=== PATIENT | male | born 1975 | race Caucasian/White ===

== ENCOUNTER 2022-02-05 19:29 | Emergency (ER) | payer BC, SELFPAY ==
[2022-02-05 19:57] VITALS: BP 155/78; PULSE 105; RESP 18; TEMP 36.7; O2SAT 99; BMI 38.4
--- NOTE | 2022-02-05 20:02 | ED.GENADULT ---
HPI - General Adult General Time Seen by Provider: 20:02 Date Seen: 02/05/22 Chief complaint: Unspecified Complaint, Adult Stated complaint: Elbow Gout Flare up Time Seen by Provider: 02/05/22 20:02 Source: patient and RN notes reviewed Mode of arrival: ambulatory Limitations: no limitations History of Present Illness HPI narrative: Patient is a 46-year-old male coming in with left elbow pain. He notes it has been getting increasingly red and swollen, painful. It hurts to move. He denies any trauma. He is noted to have a little scab in the center of his elbow. He states there was a little white thing that was coming out of his elbow. He picked at it. He picked at his elbow before the redness started. He states he was working in within [employer]. They did get colchicine for him, he did not get prednisone. He states the pain was so bad last night he could not sleep. He did drive himself here. He has not noted any fevers. He has not had any chills or night sweats. He has had a history of gout in his elbow before. Related Data Home Medications Medication Instructions Recorded Confirmed allopurinol 100 mg tablet 100 mg PO DAILY 02/05/22 02/05/22 colchicine 0.6 mg tablet 0.6 mg PO DAILY 02/05/22 02/05/22 naltrexone 50 mg tablet 50 mg PO DAILY 02/05/22 02/05/22 Allergies Allergy/AdvReac Type Severity Reaction Status Date / Time No Known Drug Allergies Allergy Verified 10/23/21 07:45 Review of Systems Status of ROS: Reports: 6 or more systems reviewed and unremarkable except as noted in History and below [facility] Medical History (Updated 02/05/22 @ 20:56 by Rosibel Darden MD) Anxiety Gout Social History (Updated 10/23/21 @ 07:49 by Misty Arriola CMA) Smoking Status: Never smoker How often do you have a drink containing alcohol: never How often do you have six or more drinks on one occasion: Never AUDIT-C Alcohol total score: 0 Non-prescribed substance use: denies use service: No Exam Const: Vital Signs, click to edit/add: Vital Signs - 24 hr 02/05/22 19:57 Temperature 98.0 F Pulse Rate [Right Pulse Oximeter] 105 H Respiratory Rate 18 Blood Pressure [Ri ght Upper Arm] 155/78 H Pulse Oximetry 99 Oxygen Delivery Me thod Room Air Documenting provider has reviewed patient's vital signs: yes (Note oral temperature is 98.5? F.) Common normals: no apparent distress, oriented x3, no limitations, healthy appearing and alert General appearance: cooperative, comfortable, well kempt and well developed Eye: Common normals: PERRL, EOMs intact bilaterally, conjunctivae normal and no scleral icterus Conjunctiva: conjunctiva(e) normal Pupil: PERRL Neck & C-Spine: Common normals: full ROM, no lymphadenopathy, supple, no meningeal signs, no JVD and thyroid normal Thyroid: thyroid normal Resp: Common normals: normal respiratory effort, no retractions, no use of accessory muscles and clear to auscultation bilaterally Auscultation: clear to auscultation bilaterally Cardio: Common normals: no JVD, regular rate, regular rhythm, S1 normal heart sound, S2 normal heart sound, no gallops, no clicks and no murmurs Rate: regular rate Rhythm: regular rhythm Heart sounds: S1 normal and S2 normal Extremity: Other: Posterior aspect of his elbow is erythematous. Does seem to be some fluid and tenderness over the olecranon. There is a scab in the center of all this erythema. The erythema is not intensified around the scab. He is globally tender when I palpate. He does not want to flex or extend the elbow due to pain. Distal sensation and neurologic status is intact of this extremity. Neuro: Common normals: oriented x3 Sensorium/orientation: alert Meningeal signs: no meningeal signs Psych: Appearance: well kempt Course Course Hospital Course: Reviewed with patient that I do think we should obtain some blood work. I would like to see where his white count is as well as a uric acid. Will obtain 1 blood culture and get a 2nd 1 if needed. He had a hat on when they checked his temperature. Will have them get an oral documented temperature on him. This certainly could be gout but need to rule out septic olecranon bursitis, cellulitis. Reevaluation(s) Reevaluation #1: Reviewed with patient that his white count is normal, oral temperature is normal. C-reactive protein is mildly elevated but that certainly can be with gout. Uric acid is mid range. He looks quite well, doubt that this is a septic olecranon bursitis. We can cover for cellulitis with some Keflex but to go ahead and treat for gout as well. He is really wanting prednisone and I reviewed with him that we will get that for him. I will give him a small for tablet count of 5 mg oxycodone from the [employer] dispenser. Sed rate is still pending but anticipate that that will be elevated as well. Time: 20:51 Vital Signs Vital signs: Initial Vital Signs Temperature 98.0 F 02/05/22 19:57 Temperature Source Temporal Artery Scan 02/05/22 19:57 Pulse Rate 105 H 02/05/22 19:57 Respiratory Rate 18 02/05/22 19:57 Blood Pressure 155/78 H 02/05/22 19:57 Blood Pressure Mean 103 02/05/22 19:57 Blood Pressure Position Sitting 02/05/22 19:57 Pulse Oximetry 99 02/05/22 19:57 Oxygen Delivery Method 02/05/22 19:57 Vital Signs Temperature 98.0 F 02/05/22 19:57 Pulse Rate 105 H 02/05/22 19:57 Respiratory Rate 18 02/05/22 19:57 Blood Pressure 155/78 H 02/05/22 19:57 Pulse Oximetry 99 02/05/22 19:57 Oxygen Delivery Method 02/05/22 19:57 Temperature 98.0 F 02/05/22 19:57 Pulse Rate 105 H 02/05/22 19:57 Respiratory Rate 18 02/05/22 19:57 Blood Pressure 155/78 H 02/05/22 19:57 Pulse Oximetry 99 02/05/22 19:57 Oxygen Delivery Method 02/05/22 19:57 Medical Decision Making Lab Data Lab results reviewed: Yes I reviewed the patient's lab results Labs: Lab Results 02/05/22 02/05/22 Range/Units 20:18 20:18 WBC 7.87 (4.50-11.00) K/uL RBC 5.01 (4.30-5.90) m/uL Hgb 16.6 (13.5-17.5) gm/dL Hct 48.9 (37.0-53.0) % MCV 98 (80-100) fL MCH 33 (26-34) pg MCHC 34 (32-36) gm/dL RDW Coeff of Timbo 12.5 (11.5-15.5) % Plt Count 217 (140-440) K/uL Neut % (Auto) 68.8 (42.0-72.0) % Lymph % (Auto) 22.1 (20-44) % Kendall % (Auto) 7.6 (0.0-11.0) % Eos % (Auto) 0.6 (0.0-7.0) % Baso % (Auto) 0.4 (0.0-3.0) % Neut # (Auto) 5.41 (1.7-7.0) K/uL Lymph # (Auto) 1.74 (0.90-2.90) K/uL Kendall # (Auto) 0.60 (0.00-0.90) K/UL Eos # (Auto) 0.05 (0.00-0.50) K/uL Baso # (Auto) 0.03 (0.00-0.30) K/uL Sodium 139 (135-149) mmol/L Potassium 3.7 (3.6-5.1) mmol/L Chloride 106 (96-114) mmol/L Carbon Dioxide 29 (20-32) mmol/L BUN 12 (5-24) mg/dL Creatinine 0.9 (0.5-1.5) mg/dL Estimated Creat Clear 103.65 Estimated GFR 107 ml/min Glucose 87 (60-115) mg/dL Uric Acid 6.1 (2.2-8.4) mg/dL Calcium 9.1 (8.4-10.6) mg/dL C-Reactive Protein 3.8 H (0.5-1.0) mg/dL Critical Care Time Critical Care Time Critical Care Time: No Discharge Plan Discharge Clinical Impression: Gout Patient Disposition: Home, Self-Care Condition: Stable Instructions: Low Purine Diet (ED), Gout (ED) Additional Instructions: Start prednisone and take as prescribed. Tylenol baseline for pain, 1000 mg 3 times a day. Can use some ibuprofen if needed for extra pain control but be careful as prednisone and ibuprofen together may cause stomach irritation, take either with food. Have written for small dose of oxycodone to use until the prednisone is working. Do not drive or operate machinery on the oxycodone. If you become constipated with the oxycodone, you senna or MiraLax. If you develop a fever, have increasing redness or swelling about the elbow, symptoms are worsening and not improving, do need to be re-evaluated. We will also cover you with Keflex which is an antibiotic given there is a little bit of a scab on this elbow. Do not feel that there is infection at this time but cannot 100% prove that there isn't. Prescriptions: No Action allopurinol 100 mg tablet 100 mg PO DAILY colchicine 0.6 mg tablet 0.6 mg PO DAILY naltrexone 50 mg tablet 50 mg PO DAILY Stand Alone Forms: [facility] Info Instructions
[2022-02-05 20:25] LABS: Basophils Absolute Auto 0.03 K/uL (0.00-0.30); Basophils Percent Auto 0.4 % (0.0-3.0); Eosinophils Absolute Auto 0.05 K/uL (0.00-0.50); Eosinophils Percent Auto 0.6 % (0.0-7.0); Hematocrit 48.9 % (37.0-53.0); Hemoglobin* 16.6 gm/dL (13.5-17.5); Immature Granulocytes Abs Auto 0.04 K/uL (0.00-0.30); Immature Granulocytes Pct Auto 0.5 %; Lymphocytes Absolute Auto 1.74 K/uL (0.90-2.90); Lymphocytes Percent Auto 22.1 % (20-44); Mean Corpuscular HGB Conc 34 gm/dL (32-36); Mean Corpuscular Hemoglobin 33 pg (26-34); Mean Corpuscular Volume 98 fL (80-100); Monocytes Percent Auto 7.6 % (0.0-11.0); Neutrophils Absolute Auto 5.41 K/uL (1.7-7.0); Neutrophils Percent Auto 68.8 % (42.0-72.0); Platelet Count* 217 K/uL (140-440); RDW Coefficient of Variation % 12.5 % (11.5-15.5); Red Blood Count 5.01 m/uL (4.30-5.90); White Blood Count* 7.87 K/uL (4.50-11.00)
[2022-02-05 20:27] LABS: Slide Review Reflex No
[2022-02-05 20:39] LABS: Chloride* 106 mmol/L (96-114); Potassium* 3.7 mmol/L (3.6-5.1); Sodium* 139 mmol/L (135-149)
[2022-02-05 20:41] LABS: Creatinine* 0.9 mg/dL (0.5-1.5); Est. Creatinine Clearance* 103.65; Estimated Glomerular Filt Rate 107 ml/min
[2022-02-05 20:42] LABS: Blood Urea Nitrogen* 12 mg/dL (5-24); Carbon Dioxide* 29 mmol/L (20-32); Glucose* 87 mg/dL (60-115)
[2022-02-05 20:43] LABS: Calcium* 9.1 mg/dL (8.4-10.6); Uric Acid* 6.1 mg/dL (2.2-8.4)
[2022-02-05 20:45] LABS: C Reactive Protein* 3.8 mg/dL (0.5-1.0)
[2022-02-05 21:16] LABS: Erythrocyte SedimentationRate* 7 mm/hr (2-15)
== END 2022-02-05 21:11 | disposition home or self-care (01) ==
PROVIDERS: Emergency Provider Family Medicine
DX: M10.9 Gout, unspecified (principal)
CPT/HCPCS: 36415; 80048; 84550; 85025; 85651; 86140; 87040; 99283; 99284

== ENCOUNTER 2022-08-29 09:01 | Emergency (ER) | payer BC, OTHER, SELFPAY ==
[2022-08-29 09:22] VITALS: BP 136/85; PULSE 99; RESP 18; TEMP 36.7; O2SAT 100; BMI 39.1
[2022-08-29] MEDS: OXYCODONE 5 MG TABLET PO (09:57)
[2022-08-29] MEDS: LORazepam 1 MG TABLET PO (09:58)
--- OUTSIDE RECORDS SUMMARY | 2022-08-29 10:01 | XMS_ITS | Continuity of Care Document ---
Author Name Unknown Address [address] [place] [address] Phone [facility] Address [address] [place] [address] Phone Care Team Providers Care Trouble Operator Name Role Phone BETSY Flores Emergency Provider Unavaila ble PCP, None Primary Care Provider Unavailabl e Care Teams Patient Care Team Team Status: Active Member Role Status Dates Sherrie Flores NP Emergency Provider Active Start: October 16, 2021 None PCP Primary Care Provider Active Start: October 16, 2021 SONIA CLEMONS next of kin Active Chief Complaint and Reason for Visit Chief Complaint PAIN IN LEFT KNEE Allergies, Adverse Reactions, Alerts No known allergies Social History Smoking Status Status Start Date End Date Date of Observa tion Never smoked tobacco (finding) October 16, 2021 6:00pm Observation Status Observation Response Date of Response Tobacco Use Status *Q Never Tobacco User Septemb er 2021 6:00pm Tobacco Use Within Last Twelve Months No October 16, 2021 6:00pm Smoking Cessation Informatio n Provided To Patient No October 16, 2021 6:00pm Second Hand Smoke Exposure No Octe [facility] 2021 6:00pm Tobacco Use/Smoking Within Last 30 Days No October 16, 2021 6:00pm Caffeine Use Coffee October 16 6:00pm Soda October 16 6:00pm Alcohol Use History Yes October 6:00pm Alcohol Use in Last Twelve Months Yes October 16, 2021 6:00pm Alcohol Use Frequency Socially October 16, 2021 6:00pm Weekly October 16 6:00pm Recreational Drug Use History No Se ptember 2021 6:00pm Additional Data Assigned Sex Male Problems Active Problems Medical Problem Onset Date Status Left knee pain Active Procedures Procedure Date Performed Status Knee 3V Lt October 16, 2021 5:18pm activ e Vital Signs Vital Reading Result Reference Range Collection Date/Time Body Temperature 36.4 Katelin 36.1-38.1 October 162021 6:00pm Heart Rate 76 /min 60-100 October 16, 2021 6:00pm Respiratory rate 18 /min 12-20 October 162021 6:00pm Oxygen saturation by Pulse oximetry 99 % 95-100 October 16, 2021 6:00pm BP Systolic 156 mm[Hg] 90-140 October 16, 2021 6:00pm BP Diastolic 66 mm[Hg] 60-90 October 16, 2021 6:00pm Advance Directives Advance Directive Response Recorded Date/ Time Patient has Advance Directive *Q Not Applicable October 16, 2021 6:00pm Insurance Providers Payer Policy Id Coverage Id Subscriber's Name Subscriber Id Effective Date Expiration Date [employer] Individual Family [id number] SONIA CLEMONS [id number] Encounters Encounter Location(s) Arrival/Admit Date Discharge/Depart Date Provider(s) Departed Emergency [facility]Emergency Dept - [facility] October 16, 2021 4:14pm October 16, 2021 6:35pm null Mental Status Observation Response Date Recorded Affect/Behavior Calm October 16 5:05pm Cooperative October 16 5:05pm Plan of Treatment Future Tests Future scheduled test information is unavailable Pending Tests Test Name Date ordered Knee 3V Lt October 16, 2021 5:19pm Future Visits Future appointment information is unavailable Referrals to Other Providers Reason for Referral Referral Start Date Provider Jose sotomayor Contact Information Provider Address None PCP Future Procedures Future procedure information is unavailable Future Medications Future medication information is unavailable Patient Instructions Acute Knee Pain, Adult, Easy -to-Read Hospital Discharge Instructions Additional Instructions Rest, ice, Eduar wrap, elevate about level of heart as often as possible. Take hydrocodone/apap pain meds that were given to you as follows: one pill by mouth every 6 hrs as needed for pain. Avoid painful motions. Follow up with you Primary Care Provider as needed. Mode of Departure, General Discharge: Private Vehicle Accompanied By: Unaccompanied Patient Education Completed: Yes Personal Belongings with Patient: Yes Prescriptions Given to Patient: No Medications Given to Patient: Yes Progress Note Author Sherrie Flores [facility] October 16, 2021 7:37pm Note Date/Time October 16, 2021 6:23pm Patient Name: SONIA CLEMONS Unit#: [id number] Date of : 1975 Patient Type: REG ER Admit/Service Date:10/16/21 Attending Provider:Sherrie Flores Rm/Bed: Consulting Provider: Discharge Date: ED HPI GENERAL MEDICAL PROBLEM - General Chief Complaint: General Stated Complaint: PAIN IN LEFT KNEE Time Seen by Provider: 10/16/21 17:10 Source of Information: Reports: Patient History Limitations: Reports: No Limitations - History of Present Illness INITIAL COMMENTS - FREE TEXT/NARRATIVE: Pain and swelling in left knee x three days, denies injury. States went to bed wnl and awakened in pain and left knee swollen three days ago. States is worsening. Took ibuprofen for it, last dose more than 8 hrs ago. Is limping. Somewhat swollen, no warmth or redness. - Related Data Allergies Allergy/AdvReac Type Severity Reaction Status Date / Time No Known Allergies Allergy Verified 10/16/21 17:17 ED ROS GENERAL - Review of Systems Review Of Systems: Comprehensive ROS is negative, except as noted in HPI. ED EXAM, GENERAL - Physical Exam Exam: See Below Exam Limited By: No Limitations General Appearance: Alert, No Apparent Distress Eye Exam: Bilateral Eye: EOMI Ears: Hearing Grossly Normal Throat/Mouth: Normal Voice, No Airway Compromise Head: Atraumatic, Normocephalic Neck: Normal Inspection, Supple, Non-Tender, Full Range of Motion Respiratory/Chest: No Respiratory Distress, Lungs Clear, Normal Breath Sounds, Chest Non-Tender Cardiovascular: Normal Peripheral Pulses, Regular Rate, Rhythm GI/Abdominal: Soft, Non-Tender Back Exam: Normal Inspection, Full Range of Motion Extremities: Normal Capillary Refill, Joint Swelling (left knee) Neurological: Alert, Oriented, Normal Cognition, No Motor/Sensory Deficits Psychiatric: Normal Affect, Normal Mood Skin Exam: Warm, Dry, Intact, Normal Color, No Rash Lymphatic: No Adenopathy Course - Orders/Labs/Meds Orders: Active Orders 24 hr Category Date Time Status Knee 3V Lt [CR] Stat Exams 10/16/21 17:18 Taken Meds: Medications Discontinued Medications Generic Name Dose Route Start Last Admin Trade Name Serena PRN Reason Stop Dose Admin Ketorolac Tromethamine 30 mg 10/16/21 17:17 10/16/21 17:22 Ketorolac 30 Mg/Ml Sdv IM 10/16/21 17:18 30 mg ONETIME ONE Administration Ketorolac Tromethamine Confirm 10/16/21 17:31 Ketorolac 30 Mg/Ml Sdv Administered 10/16/21 17:32 Dose 30 mg .ROUTE .STK-MED ONE - Radiology Interpretation Free Text/Narrative:: Left knee xray shows no acute findings. Eduar wrap and ice pack given. Ketorolac injection with limited effectiveness. Pt now states that he thinks that he hurt hit while walking up some stairs, stating remembering it buckled a couple of times. Does not have a certified driver examiner with him. Gave ER to go pack of Hydrocodone/Acet 5/325, 1 po q 6hrs prn, #10. Departure - Departure Time of Disposition: 18:35 Disposition: Home, Self-Care 01 Condition: Good Clinical Impression: Left knee pain - Discharge Information Instructions: Acute Knee Pain, Adult, [id number] Referrals: PCP,None [Primary Care Provider] - Forms: ED Department Discharge Additional Instructions: Rest, ice, Eduar wrap, elevate about level of heart as often as possible. Take hydrocodone/apap pain meds that were given to you as follows: one pill by mouthevery 6 hrs as needed for pain. Avoid painful motions. Follow up with you Primary Care Provider as needed. - Problem List & Annotations (1) Left knee pain SNOMED Code(s): 2926967372 Code(s): M25.562 - PAIN IN LEFT KNEE Status: Acute Current Visit: Yes Qualifiers: Chronicity: acute Qualified Code(s): M25.562 - Pain in left knee - Problem List Review Problem List Initiated/Reviewed/Updated: Yes - My Orders Last 24 Hours: My Active Orders 10/16/21 17:18 Knee 3V Lt [CR] Stat - Assessment/Plan Last 24 Hours: My Active Orders 10/16/21 17:18 Knee 3V Lt [CR] Stat Electronically Signed: Sherrie Flores NP 10/16/21 [id number]
--- NOTE | 2022-08-29 10:11 | ED.GENADULT ---
HPI - General Adult General Date Seen: 08/29/22 Chief complaint: Back Injury/Pain Stated complaint: threw back out Time Seen by Provider: 08/29/22 09:26 Source: patient Mode of arrival: ambulatory Limitations: no limitations History of Present Illness HPI narrative: Patient is a 47-year-old male with long history of problems with his low back. He has had a couple of injections in the past which he says helped for about a year. He has disc bulges known at L 3, 4 and 5 I believe based on his last imaging. Does not sound like he has ever had radicular symptoms but he does respond well to injections historically. He was seen here in June, it sounds as if a conversation then was that he was going to follow up with Spine but he did not. He I think misunderstood the plan at that time. This morning he was getting out of bed and tweaked his back in the usual manner, complains of pain and spasm in the low back without radiation. He does not have any numbness or weakness, no bowel or bladder changes, no fevers, night sweats or other red flag symptoms. He says he seems to do better when he comes in right away. He improved rapidly last time with nonsteroidals and muscle relaxers after receiving an injection of Dilaudid and Valium in the ER, but says that the injections were very painful and he does not want to do that again. Related Data Home Medications Medication Instructions Recorded Confirmed colchicine 0.6 mg tablet 0.6 mg PO DAILY 02/05/22 02/05/22 naltrexone 50 mg tablet 50 mg PO DAILY 02/05/22 02/05/22 desvenlafaxine succinate 100 mg 100 mg PO DAILY 07/04/22 07/04/22 tablet,extended release 24 hr desvenlafaxine succinate 50 mg 50 mg PO DAILY 07/04/22 07/04/22 tablet,extended release 24 hr lorazepam 0.5 mg tablet 0.5 mg PO PRN 08/29/22 Previous Rx's Medication Instructions Recorded cyclobenzaprine 10 mg tablet 10 mg PO Q8H #15 tabs 08/29/22 ketorolac 10 mg tablet 10 mg PO Q8H #15 tabs 08/29/22 methylprednisolone 4 mg tablets in See Rx Instructions PO .COMPLEX 08/29/22 a dose pack (Medrol (Karan)) #21 ea Allergies Allergy/AdvReac Type Severity Reaction Status Date / Time No Known Drug Allergies Allergy Verified 08/29/22 09:27 Review of Systems Status of ROS: Reports: 10 or more systems reviewed and unremarkable except as noted in History and below [facility] Medical History Gout ?M10.9 - Gout, unspecified (ICD-10) Anxiety ?F41.9 - Anxiety disorder, unspecified (ICD-10) Social History Smoking Status: Never smoker How often do you have a drink containing alcohol: never How often do you have six or more drinks on one occasion: Never AUDIT-C Alcohol total score: 0 Non-prescribed substance use: denies use service: No Exam Narrative: Exam Narrative: Vital signs as noted above. In general, an alert, well-appearing patient. Head: Normocephalic, atraumatic. Eyes: Pupils are equal reactive. Extraocular movements are full. Conjunctivae are normal. ENT: Mucous membranes are moist. Throat is normal. Neck: Supple without lymphadenopathy. Heart: Regular rate and rhythm. No murmur or rub. Lungs: Clear bilaterally. No increased work of breathing, crackles or wheezes. Abdomen: Soft and nontender. No organomegaly. Back: Lower lumbar tenderness. Extremities: Well perfused. No edema. No calf tenderness. Pulses intact. Neurologic: Patient is alert and oriented to person and place. Speech is fluent. Face is symmetric. Strength is 5 of 5 in bilateral lower extremities, sensation is intact to light touch. Affect: Normal. Skin: Warm and dry. Well perfused. Const: Vital Signs, click to edit/add: Vital Signs - 24 hr 08/29/22 09:22 Temperature 98.1 F Pulse Rate [Right Pulse Oximeter] 99 Respiratory Rate 18 Blood Pressure [Ri ght Upper Arm] 136/85 Pulse Oximetry 100 Oxygen Delivery Me thod Room Air Course Course Hospital Course: We talked at length about management of his back symptoms, he has been told that he should defer surgery for as long as possible and I would agree with that. It does however sound that he responds well to injections, and gets good relief 4 year and as such I think it would be reasonable for him to proceed with another injection if that seems feasible. I have recommended that he follow up in Spine Clinic. For today, we will give a dose of oral oxycodone and Ativan for acute management here in the ER, and then I will prescribe Toradol, Flexeril and a Medrol Dosepak for home use. Return at any time for acute worsening, severe uncontrolled pain, weakness, bowel or bladder changes etcetera. Vital Signs Vital signs: Initial Vital Signs Temperature 98.1 F 08/29/22 09:22 Temperature Source Temporal Artery Scan 08/29/22 09:22 Pulse Rate 99 08/29/22 09:22 Respiratory Rate 18 08/29/22 09:22 Blood Pressure 136/85 08/29/22 09:22 Blood Pressure Mean 102 08/29/22 09:22 Blood Pressure Position Sitting 08/29/22 09:22 Pulse Oximetry 100 08/29/22 09:22 Oxygen Delivery Method Room Air 08/29/22 09:22 Vital Signs Temperature 98.1 F 08/29/22 09:22 Pulse Rate 99 08/29/22 09:22 Respiratory Rate 18 08/29/22 09:22 Blood Pressure 136/85 08/29/22 09:22 Pulse Oximetry 100 08/29/22 09:22 Oxygen Delivery Method Room Air 08/29/22 09:22 Temperature 98.1 F 08/29/22 09:22 Pulse Rate 99 08/29/22 09:22 Respiratory Rate 18 08/29/22 09:22 Blood Pressure 136/85 08/29/22 09:22 Pulse Oximetry 100 08/29/22 09:22 Oxygen Delivery Method Room Air 08/29/22 09:22 Discharge Plan Discharge Clinical Impression: Strain of lumbar region Patient Disposition: Home, Self-Care Condition: Stable Instructions: Back Pain (ED) Additional Instructions: Medications as prescribed. Recommend follow-up in the spine clinic in the next couple of weeks, consideration of another injection, may need additional imaging. For severe uncontrolled pain, new weakness, bowel or bladder changes, fever or other significant changes, return to the emergency department. Prescriptions: New methylprednisolone [Medrol (Karan)] 4 mg tablets,dose pack See Rx Instructions .ROUTE .COMPLEX Qty: 21 0RF Rx Instructions: orally per package directions ketorolac 10 mg tablet 10 mg PO Q8H Qty: 15 0RF cyclobenzaprine 10 mg tablet 10 mg PO Q8H Qty: 15 0RF No Action desvenlafaxine succinate 50 mg tablet extended release 24 hr 50 mg PO DAILY desvenlafaxine succinate 100 mg tablet extended release 24 hr 100 mg PO DAILY lorazepam 0.5 mg tablet 0.5 mg PO PRN colchicine 0.6 mg tablet 0.6 mg PO DAILY naltrexone 50 mg tablet 50 mg PO DAILY Follow Up/Referrals: Provider,Not a Local [Primary Care Provider] - Stand Alone Forms: [facility] Info Instructions
== END 2022-08-29 10:17 | disposition home or self-care (01) ==
LOC: ED 10:00
PROVIDERS: Emergency Provider Emergency Medicine
DX: S39.012A Strain of muscle, fascia and tendon of lower back, initial encounter (principal)
CPT/HCPCS: 99283; 99284; A9270

== ENCOUNTER 2022-09-07 07:39 | Outpatient (CLI) | payer BC, OTHER, SELFPAY | END 2022-09-07 07:40 | disposition home or self-care (01) | PROVIDERS: Visit Provider Family Medicine | DX: M54.16 Radiculopathy, lumbar region (principal); M51.36 Other intervertebral disc degeneration, lumbar region | CPT/HCPCS: 62323; J0702; Q9966 ==

== ENCOUNTER 2023-01-25 06:59 | Outpatient (CLI) | payer BC, OTHER, SELFPAY | END 2023-01-25 07:00 | disposition home or self-care (01) | PROVIDERS: Visit Provider Family Medicine | DX: M51.36 Other intervertebral disc degeneration, lumbar region (principal); M54.16 Radiculopathy, lumbar region | CPT/HCPCS: 62323; J0702; Q9966 ==

== ENCOUNTER 2023-07-05 06:52 | Outpatient (CLI) | payer OTHER, SELFPAY ==
--- OUTSIDE RECORDS SUMMARY | 2023-07-05 06:55 | XMS_ITS ---
Author Name Unknown Organization [facility] Address [address] [place] [id number] Care Team Providers Care Cloth Folder Hand Name Role Phone Elsewhere, Pcp Primary Care Provider Unavailabl e Bariatrics Program Status:Enrolled (Active) Start date:08/30/2022 Enrollment date:11/10/2022 Current support & services provided:Pre-Op Related social determinants of health:Food Insecurity, Transportation Needs Continued Care and Services Coordination
--- OUTSIDE RECORDS SUMMARY | 2023-07-05 06:55 | XMS_ITS | Referral Summary ---
Author Name Unknown Organization [facility] Address [address] [place] [address] Care Team Providers Care Molding Press Operator Name Role Phone Elsewhere, Pcp Primary Care Provider Unavailabl e Source Comments Patient records contain information from all sites at [facility]. For routine questions regarding patient records, call [phone] during business hours, M-F 8:00 AM - 5:00 PM Central Time. Record requests for emergency care only can be directed to [phone] at any time.[facility] Allergies Active Allergy Reactions Criticality Noted Date Comments Chlorpheniramine-Phenylpropan Other (see comments) Medium 02/23/2016 Medications Medication Sig Dispensed Refills Start Date End Date Status allopurinoL (ZYLOPRIM) 100 mg tablet take 100mg by mouth once daily for 2 weeks; then increase to 200mg for 2 weeks; then increase to 300mg 07/08/2021 Active LORazepam (ATIVAN) 0.5 mg tablet 12/31/2021 Active desvenlafaxine (PRISTIQ) 100 mg 24 hr tablet Take 100 mg by mouth daily. Active desvenlafaxine (PRISTIQ) 100 mg 24 hr tablet Take 100 mg by mouth daily. Active desvenlafaxine (PRISTIQ) 50 mg 24 hr tablet Take 50 mg by mouth daily. Active allopurinoL (ZYLOPRIM) 100 mg tablet Take 1 tablet (100 mg total) by mouth daily. 90 tablet 3 01/01/2022 Active naltrexone (DEPADE) 50 mg tablet Take 1 tablet (50 mg total) by mouth daily. 30 tablet 02/04/2022 Active Active Problems Problem Noted Date Diagnosed Date Anxiety 12/31/2021 Gout 12/31/2021 Alcohol Moderate Or Severe U se Disorder (Dependence) Uncomplicated 12/31/2021 Immunizations Name Administration Dates Next Due Influenza (IM) Preservative Free 12/31/2021(Defe rred: Patient decision) MMR 06/23/1994 SARS-COV-2 (COVID-19) - PFIZ ER (Discontinued)(12 years or older) 12/31/2021(Deferred: Patient decision) Td (Adult), adsorbed 02/14/2003,04/14/2000,06/11 Td, (Adult) Unspecified 02/14/2003 Tdap 09/18/2015 Tetanus Toxoid, Adsorbed (discontinued) 02/14/2003 Social History Tobacco Use Types Packs/Day Years Used Date Smoking Tobacco: Never Smokeless Tobacco: Never Tobacco Cessation:Counseling Given: Not Answered Alcohol Use Standard Drinks/Week Comments Yes 40 (1 standard drink = 0.6 oz pure alcohol) 40 strong drinks per week Vodka. Humiliation, Afraid, Rape, and Kick questionnair e Answer Date Recorded Within the last year, have y ou been afraid of your partner or ex-partner? No 12/31/2021 Within the last year, have y ou been humiliated or emotionally abused in other ways by your partner or ex-partner? No Within the last year, have y ou been kicked, hit, slapped, or otherwise physically hurt by your partner or ex-partner? No 12/31/2021 Within the last year, have y ou been raped or forced to have any kind of sexual activity by your partner or ex-partner? No 12/31/2021 Social Connection and Isolation Panel [NHANES] A nswer Date Recorded In a typical week, how many times do you talk on the phone with family, friends, or neighbors? Once a week 12/31/2021 Frequency of Social Gatherings with Friends and Family Not on file 12/31/2021 How often do you attend spiritism or latter-day serv ices? Never 12/31/2021 Do you belong to any clubs o r organizations such as spiritism groups, unions, fraternal or athletic groups, or school groups? No 12/31/2021 How often do you attend meet ings of the clubs or organizations you belong to? Patient declined 12/31/2021 Are you , , di vorced, , never , or living with a partner? Never 12/31/2021 AUDIT-C Answer Date Recorded Q1: How often do you have a drink containing alcohol? 4 or more times a week 12/31/2021 Q2: How many drinks containi ng alcohol do you have on a typical day when you are drinking? 3 or 4 Q3: How often do you have si x or more drinks on one occasion? Weekly 12/31/2021 Overall Financial Resource Strain (CARDIA) Answe r Date Recorded How hard is it for you to pa y for the very basics like food, housing, medical care, and heating? Not hard at all 12/31/2021 PHQ-2 Answer Date Recorded PHQ-2 Score 0 12/31/2021 [facility] - Occupational Stress Questionnaire Answer Date Recorded Do you feel stress - tense, restless, nervous, or anxious, or unable to sleep at night because your mind is troubled all the time - these days? To some extent 12/31/2021 Exercise Vital Sign Answer Date Recorde d On average, how many days pe r week do you engage in moderate to strenuous exercise (like a brisk walk)? 5 days 12/31/2021 On average, how many minutes do you engage in exercise at this level? 10 min 12/31/2021 Hunger Vital Sign Answer Date Recorded Within the past 12 months, y ou worried that your food would run out before you got the money to buy more. Never true 01/01/20 22 Within the past 12 months, t he food you bought just didn't last and you didn't have money to get more. Often true 12/31/2021 PRAPARE - Transportation Answer Date Re corded In the past 12 months, has l ack of transportation kept you from medical appointments or from getting medications? No 12/15 In the past 12 months, has l ack of transportation kept you from meetings, work, or from getting things needed for daily living? No 12/31/2021 Housing Stability Vital Sign Answer Dale e Recorded In the last 12 months, was t here a time when you were not able to pay the mortgage or rent on time? No 12/31/2021 In the last 12 months, how many places have you lived? 1 12/31/2021 In the last 12 months, was t here a time when you did not have a steady place to sleep or slept in a detention (including now)? No 12/31/2021 Nutrition Answer Date Recorded Nutrition: EVOO Fat Source No 12/31 On average, how many serving s of fruits and vegetables do you eat per day (serving size is equal to 1 cup or approximately the size of a tennis ball)? 2-3 12/31/2021 Dental Answer Date Recorded Dental: Regular Dentist Yes 01/01/20 Employment Answer Date Recorded Employment status Employed and actively working without restrictions 12/31/2021 Education Answer Date Recorded What is the highest level of school you have completed or the highest degree you have received? 12th grade 12/31/2021 Sex and Gender Information Value Date Recorded Sex Assigned at Not on file Gender Identity Not on file Sexual Orientation Not on file Last Filed Vital Signs Vital Sign Reading Time Taken Comments Blood Pressure 146/92 12/31/2021 8:36 AM MANAGER LOCAL Pulse 102 12/31/2021 8:27 AM MANAGER LOCAL Temperature 36.8 ??C (98.3 ??F) 12/31/2021 8 :27 AM MANAGER LOCAL Respiratory Rate 16 12/31/2021 8:36 AM MANAGER LOCAL Oxygen Saturation - - Inhaled Oxygen Concentration - - Weight 119 kg (263 lb 3.7 oz) 12/31/2021 8:27 AM MANAGER LOCAL heavy sweat shirt and shoes on Height 176.1 cm (5' 9.33) 12/31/2021 8 :27 AM MANAGER LOCAL Shoes on Body Mass Index 38.5 12/31/2021 8:27 AM MANAGER LOCAL Plan of Treatment Not on file Procedures Procedure Name Priority Date/Time Associated Diagnosis Comments EXTI BASIC METABOLIC PANEL, S/P Routine 07/06/2021 4:20 PM CDT from Last 3 Months or Most Recently Relevant to Health Maintenance Care Teams Molding Press Operator Relationship Specialty Start Date End Date Elsewhere, Pcp PCP - General Internal Medicine 12/31/21
--- OUTSIDE RECORDS SUMMARY | 2023-07-05 06:55 | XMS_ITS | Clinical Summary ---
Author Name Unknown Organization [facility] Address [address] [place] [id number] Care Team Providers Care Furniture Sprayer Name Role Phone Elsewhere, Pcp Primary Care Provider Unavailabl e Source Comments Patient records contain information from all sites at [facility]. For routine questions regarding patient records, call [phone] during business hours, M-F 8:00 AM - 5:00 PM Central Time. Record requests for emergency care only can be directed to [phone] at any time.[facility] Allergies Active Allergy Reactions Criticality Noted [...] file 12/31/2021 How often do you attend christianity or sabianism serv ices? Never 12/31/2021 Do you belong to any clubs o r organizations such as christianity groups, unions, fraternal or athletic groups, or [...] Answer Date Recorded PHQ-2 Score 0 12/31/2021 [facility] - Occupational Stress [...] place to sleep or slept in a chcf (including now)? No 12/31/2021 Nutrition Answer Date [...] Comments Blood Pressure 146/92 12/31/2021 8:36 AM PRIZE JACKER Pulse 102 12/31/2021 8:27 AM PRIZE JACKER Temperature 36.8 ??C (98.3 ??F) 12/31/2021 8 :27 AM PRIZE JACKER Respiratory Rate 16 12/31/2021 8:36 AM PRIZE JACKER Oxygen Saturation - - Inhaled Oxygen Concentration - - Weight 119 kg (263 lb 3.7 oz) 12/31/2021 8:27 AM PRIZE JACKER heavy sweat shirt and shoes on Height 176.1 cm (5' 9.33) 12/31/2021 8 :27 AM PRIZE JACKER Shoes on Body Mass Index 38.5 12/31/2021 8:27 AM PRIZE JACKER Plan of Treatment Health Maintenance Due Date Last Done Comments CT Colonography 1976 Cologuard 1976 Colonoscopy 1976 Colorectal Cancer Screening 1976 FIT 1976 HIV Screening 1976 Hepatitis C Screening 1976 Lipid (Cholesterol) Screening 1976 Pneumococcal vaccine (0-64 y ears) (1 of 2 - PCV) 1982 Hepatitis B Vaccines (1 of 3 - 19+ 3-dose series) 07/31/1995 COVID-19 Vaccine ( - 2022-2 4 season) 2022 Influenza Vaccine (#1) 2022 Depression Screening (Annual PHQ-2) 02/14/2023 Fasting Glucose for Diabetes Screening 07/06/2024 07/06/2021 DTaP,Tdap,and Td Vaccines (3 - Td or Tdap) 09/17/2025 09/18/2015, 02/14/2003, 02/14/2003, Additional history exists Procedures Procedure Name Priority Date/Time Associated Diagnosis Comments EXTI BASIC METABOLIC PANEL, S/P Routine 07/06/2021 4:20 PM CDT from Last 3 Months or Most Recently Relevant to Health Maintenance Care Teams Furniture Sprayer Relationship Specialty Start Date End Date Elsewhere, Pcp PCP - General Internal Medicine 12/31/21
--- OUTSIDE RECORDS SUMMARY | 2023-07-05 06:55 | XMS_ITS | Clinical Summary ---
Author Name Unknown Organization [facility] Address [place], [place] [address] Care Team Providers Care Welder Shielded Metal Arc Name Role Phone Raymundo Zuluaga DO Primary Care Provider [phone] Allergies Active Allergy Reactions Criticality Noted Date Comments Chlorpheniramine-Phenylpropan Runny Nose Medium 2016 Medications Medication Sig Dispensed Refills Start Date End Date Status desvenlafaxine succinate (PRISTIQ) 100 mg extended release tablet 05/06/2021 Active desvenlafaxine succinate (PRISTIQ) 50 mg Extended-Release tablet 05/06/2021 Active celecoxib (CELEBREX) 200 mg capsuleIndicatio ns:DDD (degenerative disc disease), lumbar TAKE ONE CAPSULE BY MOUTH TWICE A DAY WITH MEALS . DO NOT COMBINE WITH INDOMETHACIN. 180 Capsule 04/13/2023 Active oxyCODONE (ROXICODONE) 5 mg immediate release tabletIndication s:Lumbar radicular pain Take 1 Tablet (5 mg) by mouth every 4 hours if needed for Pain. 18 Tablet 06/13/2023 Active allopurinoL (ZYLOPRIM) 100 mg tabletIndication s:Idiopathic chronic gout of multiple sites without tophus take 100mg by mouth once daily for 2 weeks; then increase to 200mg for 2 weeks; then increase to 300mg 45 Tablet 5 07/01/2023 Active colchicine 0.6 mg tabletIndication s:Idiopathic chronic gout of multiple sites without tophus Take 1 Tablet (0.6 mg) by mouth two times daily. 12 Tablet 1 07/01/2023 Active indomethacin (INDOCIN) 50 mg capsuleIndicatio ns:Idiopathic chronic gout of multiple sites without tophus Take 1 Capsule (50 mg) by mouth three times daily with meals. 30 Capsule 1 07/01/2023 Active allopurinoL (ZYLOPRIM) 300 mg tabletIndication s:Idiopathic chronic gout of multiple sites without tophus Take 1 Tablet (300 mg) by mouth once daily. 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 30 Capsule 1 06/11/2021 07/01/2023 Discontinued (Reorder (E-cancel not sent)) allopurinoL (ZYLOPRIM) 100 mg tabletIndication s:Idiopathic chronic gout of multiple sites without tophus take 100mg by mouth once daily for 2 weeks; then increase to 200mg for 2 weeks; then increase to 300mg 45 Tablet 1 07/08/2021 07/01/2023 Discontinued (Reorder (E-cancel not sent)) methylPREDNISolo ne (MEDROL DOSEPAK) 4 mg tablet 08/29/2022 07/01/2023 Discontinued (*Med complete/Reg imen complete/Lev el of care change) ketorolac (TORADOL) 10 mg tablet 08/29/2022 07/01/2023 Discontinued (*Med complete/Reg imen complete/Lev el of care change) oxyCODONE (ROXICODONE) 5 mg immediate release tabletIndication s:Lumbar radicular pain Take 1 Tablet (5 mg) by mouth every 4 hours if needed for Pain. 18 Tablet 01/10/2023 06/13/2023 Discontinued (Reorder (E-cancel not sent)) colchicine 0.6 mg tabletIndication s:Olecranon bursitis of left elbow Take 1 Tablet (0.6 mg) by mouth two times daily. 12 Tablet 1 04/29/2023 07/01/2023 Discontinued (Reorder (E-cancel not sent)) Active Problems Problem Noted Date Diagnosed Date LORI (generalized anxiety disorder) 12/22/2018 Morbid obesity with BMI of 40.0-44.9, adult 11/15 Hx of diverticulitis of colon 12/07/2017 Acute right-sided low back pain without sciatica 02/23/2016 Lumbar strain 02/23/2016 Chronic low back pain 01/16/2016 Acute follicular conjunctivitis 10/12/2005 Encounters Date Type Department Care Team Description 07/01/2023 8:00 AM CDT Office Visit [facility] [address] [place] [address] Jorge Almanza MD Musculoskeletal Problem (Follow up back pain) 07/01/2023 Travel 06/30/2023 Telephone [facility] [address] [place] [address] Jorge Almanza MD Prior Authorization (AMB EPIDURAL STEROID INJECTION . PEER TO PEER NEEDED) 06/13/2023 Telephone [facility] [address] [place] [address] Jorge Almanza MD Appointment Request (Spine Injection ) 04/28/2023 Refill [facility] [address] [place] [address] Jorge Almanza MD Refill Request (Colchicine) 04/13/[address] [address] Jorge Almanza MD Refill Request (Celecoxib) from Last 3 Months Immunizations Name Administration Dates Next Due MMR 06/23/1994 MMR, Unspecified 06/23/1994 Td (Age >=7 Years) 02/14/2003,04/14/2000, 993 Tdap 09/18/2015 Tdap, Unspecified 09/18/2015 Tetanus Toxoid 02/14/2003 Social History Tobacco Use Types Packs/Day Years Used Date Smoking Tobacco: Never Smokeless Tobacco: Never Tobacco Cessation:Counseling Given: Yes Alcohol Use Standard Drinks/Week Comments Yes 0 (1 standard drink = 0.6 oz pur e alcohol) 1-3 days a week PHQ-2 Answer Date Recorded PHQ-2 TOTAL SCORE 0 06/12/2021 Social Connections Answer Date Recorded Frequency of Communication with Friends and Fami ly Not on file 05/19/2021 Alcohol Use Answer Date Recorded How often do you have a drink containing alcohol ? 3 07/01/2023 How many drinks containing a lcohol do you have on a typical day when you are drinking? 0 07/01/2023 How often do you have five or more drinks on one occasion? 0 07/01/2023 Sex and Gender Information Value Date Recorded Sex Assigned at Not on file Gender Identity Not on file Sexual Orientation Not on file Obstetrics History Last Filed Vital Signs Vital Sign Reading Time Taken Comments Blood Pressure 147/100 07/01/2023 8:15 AM CDT Pulse 82 07/01/2023 8:15 AM CDT Temperature 36.4 ??C (97.6 ??F) 01/20/2023 4:28 PM CS T Respiratory Rate 18 01/17/2016 2:20 PM BUCKET CHUCKER Oxygen Saturation 97% 07/01/2023 8:15 AM CDT Inhaled Oxygen Concentration - - Weight 128.8 kg (284 lb) 07/01/2023 8:15 AM CDT Height 177.8 cm (5' 10) 06/12/2021 8:10 AM CDT Body Mass Index 40.75 06/12/2021 8:10 AM CDT Plan of Treatment Upcoming Encounters Date Type Department Care Team (Late st Contact Info) Description 07/05/2023 7:20 AM CDT Office Visit [facility] [address] [place] [address] Jorge Almanza MD [address] [place] [address] Health Maintenance Due Date Last Done Comments HIV for age 15-65 07/31/1991 Hepatitis C screening for age 18-79 1994 Colonoscopy through age 75 2021 Lipids for age 45-75 2021 BMI (ht and wt on same day) for age 18+ 06/12/2022 06/12/2021, 03/08/2016, 02/23/2016 Depression screening for age 12+ 06/12/2022 06/12/2021, 06/10/2021 COVID-19 vaccine series ( season) 2022 Influenza for age 9-49 10/16/2023 Tetanus booster 09/17/2025 09/18/2015, 080 05/2015, 02/14/2003, Additional history exists Tdap Completed 09/18/2015, 09/18/2015 Pneumococcal series for age 6-64 Aged Out No longer eligible based on patient's age to complete this topic Advance Directives * Full Code (Latest Code Status on File) Date Activated Date Inactivated Comments 01/16/2016 7:23 AM 01/17/2016 6:32 PM Care Teams Welder Shielded Metal Arc Relationship Specialty Start Date End Date Raymundo [place]ulu[place] [address] [place] [address] PCP - General Family Practice 01/18/23
--- OUTSIDE RECORDS SUMMARY | 2023-07-05 06:55 | XMS_ITS ---
Author Name Unknown Organization [facility] Address [address] [place] [address] Care Team Providers Care Scale And Skip Car Operator Name Role Phone Unavailable Unavailable Unavailable Surgery Details Not on file Complications Check Surgery Details section. Procedure Estimated Blood Loss Check Surgery Details section. Procedure Findings Check Surgery Details section. Procedure Specimens Taken Check Surgery Details section.
== END 2023-07-05 06:53 | disposition home or self-care (01) ==
LOC: INJ CL 06:53
PROVIDERS: Visit Provider Family Medicine
DX: M54.16 Radiculopathy, lumbar region (principal); M51.36 Other intervertebral disc degeneration, lumbar region
CPT/HCPCS: 62323; J0702; Q9966

== ENCOUNTER 2024-01-31 15:12 | Outpatient (CLI) | payer OTHER, SELFPAY | END 2024-01-31 15:13 | disposition home or self-care (01) | LOC: INJ CL 15:14 | PROVIDERS: Visit Provider Family Medicine | DX: M54.16 Radiculopathy, lumbar region (principal); M51.369 Other intervertebral disc degeneration, lumbar region without mention of lumbar back pain or lower extremity pain | CPT/HCPCS: 62323; J0702; Q9966 ==

== ENCOUNTER 2024-08-03 06:51 | Outpatient (CLI) | payer OTHER, SELFPAY ==
--- OUTSIDE RECORDS SUMMARY | 2024-08-03 06:55 | XMS_ITS | Referral Summary ---
Author Organization [facility] Address [address] [place] [address] Care Team Providers Care Otolaryngologist Name Role Phone Oswaldo Hills Primary Care Provider [phone] Yoon Rush [facility] Unavailable Un available Allergies No known active allergies Medications sertraline (ZOLOFT) 50 mg oral tablet Take 1 tablet by mouth. 3 09/08/2018 Active hydrOXYzine (ATARAX) 10 mg oral tablet TAKE 1 TABLET BY MOUTH EVERY 6 HOURS NEEDED FOR ANXIETY. 0 09/07/2018 Active montelukast (SINGULAIR) 10 mg oral tabletIndication s:Cough,Seasonal allergies Take 1 tablet (10 mg) by mouth at bedtime. 90 tablet 3 09/16/2018 Active Active Problems Problem Noted Date Diagnosed Date Hx of diverticulitis of colo n, s/p sigmoid perforation with spontaneous healing [2018] 12/07/2017 Morbid obesity with BMI of 40.0-44.9, adult 11/15 Chronic low back pain 12/07/2017 Social History Tobacco Use Types Packs/Day Years Used Date Smoking Tobacco: Never Smokeless Tobacco: Never Alcohol Use Standard Drinks/Week Comments Yes 0 (1 standard drink = 0.6 oz pur e alcohol) PHQ-2 Answer Date Recorded PHQ-2 Score 13 12/28/2017 Sex and Gender Information Value Date Recorded Sex Assigned at Not on file Legal Sex Male 8:44 AM DATA CONVERSION OPERATOR Gender Identity Not on file Sexual Orientation Not on file Last Filed Vital Signs Vital Sign Reading Time Taken Comments Blood Pressure 134/70 09/16/2018 9:57 AM CDT Pulse 79 09/16/2018 9:57 AM CDT Temperature 36.9 C (98.5 F) 09/16/2018 9:57 AM CDT Respiratory Rate 20 03/26/2017 9:13 AM DATA CONVERSION OPERATOR Oxygen Saturation 97% 09/16/2018 9:57 AM CDT Inhaled Oxygen Concentration - - Weight 96.4 kg (212 lb 9.6 oz) 09/16/2018 9:57 A M CDT Height 175.3 cm (5' 9) 09/16/2018 9:57 AM CDT Body Mass Index 31.4 09/16/2018 9:57 AM CDT Plan of Treatment Not on file Insurance [employer] OPEN ACCESS/CHOICE JULIO CÉSAR [place]OLD[place] [id number] Care Teams Otolaryngologist Relationship Specialty Start Date End Date Oswaldo Hills PCP - General Family Medicine 12/07/17 [place] [facility] PCP - Primary Care Clinic Family Medicine 12/07/17
--- OUTSIDE RECORDS SUMMARY | 2024-08-03 06:55 | XMS_ITS | Clinical Summary ---
Author Organization [facility] Address [address] [place] [address] Care Team Providers Care Surgical Aides Teacher Name Role Phone Oswaldo Hills Primary Care Provider [phone] [facility] Unavailable Un available Allergies No known active [...] adult 11/15 Chronic low back pain 12/07/2017 Family History Medical History Relation Comments Other Disease Father back pain Other Disease Sister 1 back pain Relation Status Comments Father Alive Mother Alive Sister 1 Alive Sister 2 Alive Social History Tobacco Use Types Packs/Day Years Used Date Smoking Tobacco: Never Smokeless Tobacco: Never Alcohol Use Standard Drinks/Week Comments Yes 0 (1 standard drink = 0.6 oz pur e alcohol) PHQ-2 Answer Date Recorded PHQ-2 Score 13 12/28/2017 Sex and Gender Information Value Date Recorded Sex Assigned at Not on file Legal Sex Male 8:44 AM SHOWROOM SALES ASSISTANT Gender Identity Not on file Sexual Orientation Not on file Last Filed Vital Signs Vital Sign Reading Time Taken Comments Blood Pressure 134/70 09/16/2018 9:57 AM CDT Pulse 79 09/16/2018 9:57 AM CDT Temperature 36.9 C (98.5 F) 09/16/2018 9:57 AM CDT Respiratory Rate 20 03/26/2017 9:13 AM SHOWROOM SALES ASSISTANT Oxygen Saturation 97% 09/16/2018 9:57 AM CDT Inhaled Oxygen Concentration - - Weight 96.4 kg (212 lb 9.6 oz) 09/16/2018 9:57 A M CDT Height 175.3 cm (5' 9) 09/16/2018 9:57 AM CDT Body Mass Index 31.4 09/16/2018 9:57 AM CDT Plan of Treatment Health Maintenance Due Date Last Done Comments Colonoscopy 1976 Hepatitis C Screening 1976 Lipid Screening 1976 Anxiety Screening (LORI-2) 1977 Depression Assessment (PHQ-2) 1977 COVID-19 Vaccine (2023-2 5 season) 2023 Influenza Vaccine (Season Ended) 2024 Adult Tetanus Booster 09/17/2025 09/18/2015 , 04/14/2000, 06/11/1992 RSV Vaccines (1 - 1-dose 75+ series) 07/31/2051 Meningococcal B Vaccine Aged Out No l onger eligible based on patient's age to complete this topic Pneumococcal Vaccine Aged Out No long er eligible based on patient's age to complete this topic Insurance [employer] OPEN ACCESS/CHOICE JUL[place] C[place] [id number] Care Teams Surgical Aides Teacher Relationship Specialty Start Date End Date Reinier Oswaldo L PCP - [facility] Family [facility] 12/07/[facility]
--- OUTSIDE RECORDS SUMMARY | 2024-08-03 07:21 | XMS_ITS | Clinical Summary ---
Author Organization [facility] Address [address] [place] [address] Care Team Providers Care Square Dance Caller Name Role Phone Mattie Castillo MD Primary Care Provider Allergies Active Allergy Reactions Criticality Noted Date Comments Chlorpheniramine-Phenylpropan Runny Nose Medium 2016 Medications desvenlafaxine succinate (PRISTIQ) 100 mg extended release tablet 2 Active desvenlafaxine succinate (PRISTIQ) 50 mg Extended-Releas e tablet 2 Active indomethacin (INDOCIN) 50 mg capsuleIndicati ons:Idiopathic chronic gout of multiple sites without tophus Take 1 Capsule (50 mg) by mouth three times daily with meals. 30 Capsule 1 4 Active allopurinoL (ZYLOPRIM) 300 mg tabletIndicatio ns:Idiopathic chronic gout of multiple sites without tophus Take 1 Tablet (300 mg) by mouth once daily. 90 Tablet 3 4 Active colchicine 0.6 mg tabletIndicatio ns:Idiopathic chronic gout of multiple sites without tophus Take 1 Tablet (0.6 mg) by mouth two times daily. For gout flare 24 Tablet 1 5 Active oxyCODONE 5 mg immediate release tabletIndicatio ns:Lumbar radicular pain Take 1 Tablet (5 mg) by mouth every 4 hours if needed for Pain. 18 Tablet 5 Active oxyCODONE (ROXICODONE) 5 mg immediate release tabletIndicatio ns:Lumbar radicular pain Take 1 Tablet (5 mg) by mouth every 4 hours if needed for Pain. 18 Tablet 11/27/202 4 07/12/19 25 Discontinu ed(Reorder (E-cancel not sent)) Active Problems Problem Noted Date Diagnosed Date LORI (generalized anxiety disorder) 12/22/2018 Morbid obesity with BMI of 40.0-44.9, adult 11/15 Hx of diverticulitis of colon 12/07/2017 Acute right-sided low back pain without sciatica 02/23/2016 Lumbar strain 02/23/2016 Chronic low back pain 01/16/2016 Acute follicular conjunctivitis 10/12/2005 Encounters Date Type Department Care Team Description 07/11/2024 Telephone [facility] [address] [place] [address] Jorge Almanza MD Refill Request (OXYCODONE ) 05/23/2024 Telephone [facility] [address] [place] [address] Jorge Almanza MD Need Meds (colchicine 0.6 mg tablet 12 tablets for gout flare) from Last 3 Months Immunizations Immunization Administration Dates Next Due MMR 06/23/1994 MMR, [...] Date Recorded PHQ-2 TOTAL SCORE 0 06/12/2021 Alcohol Use Answer Date Recorded How often [...] at Not on file Legal 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 Gender Identity Not on file Sexual Orientation Not on file Obstetrics History Last Filed Vital Signs Vital Sign Reading Time Taken Comments Blood Pressure 120/81 01/23/2024 3:01 PM TRAIN ATTENDANT Pulse 80 01/23/2024 3:01 PM TRAIN ATTENDANT Temperature 36.6 C (97.9 F) 01/23/2024 3:01 PM TRAIN ATTENDANT Respiratory Rate 18 11/24/2023 1:20 PM CDT Oxygen Saturation 95% 01/23/2024 3:01 PM TRAIN ATTENDANT Inhaled Oxygen Concentration - - Weight 128.6 kg (283 lb 8 oz) 01/23/2024 3:01 PM TRAIN ATTENDANT shoes on Height 177.8 cm (5' 10) 11/24/2023 1:20 PM CDT Body Mass Index 40.68 11/24/2023 1:20 PM CDT Plan of Treatment Health Maintenance Due Date Last Done Comments HIV for age 15-65 07/31/1991 Hepatitis C screening for age 18-79 1994 Hepatitis B series for 19+ (1 of 3 - 19+ 3-dose series) 07/31/1995 Colonoscopy through age 75 2021 Lipids for age 45-75 2021 Depression screening for age 12+ 06/12/2022 06/12/2021, 06/10/2021 COVID-19 vaccine series ( season) 2023 Influenza Vaccine (Season Ended) 2024 BMI (ht and wt on same day) for age 18+ 11/23/2024 11/24/2023, 06/12/2021, 03/08/2016, Additional history exists Tetanus booster 09/17/2025 09/18/2015, 05/2015, 02/14/2003, Additional history exists Tdap Completed 09/18/2015, 09/18/2015 Pneumococcal series for age 6-49 Aged Out No longer eligible based on patient's age to complete this topic Insurance [employer] Advance Directives * Full Code (Latest Code Status on File) Date Activated Date Inactivated Comments 01/16/2016 7:23 AM 01/17/2016 6:32 PM Care Teams Square Dance Caller Relationship Specialty Start Date End Date Mattie Castillo MD [address] [place] [address] PCP - General Family Practice 01/23/24
--- OUTSIDE RECORDS SUMMARY | 2024-08-04 00:18 | XMS_ITS | Referral Summary ---
Author Organization [facility] Address [address] [place] [address] Care Team Providers Care Health And Social Care Teacher Name Role Phone Oswaldo Hills Primary Care Provider [phone] Yoon [facility] Unavailable Un available Allergies No known active [...] on file Legal Sex Male 8:44 AM GOLD LAYER Gender Identity Not on file Sexual Orientation Not on file Last Filed Vital Signs Vital Sign Reading Time Taken Comments Blood Pressure 134/70 09/16/2018 9:57 AM CDT Pulse 79 09/16/2018 9:57 AM CDT Temperature 36.9 C (98.5 F) 09/16/2018 9:57 AM CDT Respiratory Rate 20 03/26/2017 9:13 AM GOLD LAYER Oxygen Saturation 97% 09/16/2018 9:57 AM CDT Inhaled Oxygen Concentration - - Weight 96.4 kg (212 lb 9.6 oz) 09/16/2018 9:57 A M CDT Height 175.3 cm (5' 9) 09/16/2018 9:57 AM CDT Body Mass Index 31.4 09/16/2018 9:57 AM CDT Plan of Treatment Not on file Insurance [employer] OPEN ACCESS/CHOICE J[place] [id number] Care Teams Health And Social Care Teacher Relationship Specialty Start Date End Date Oswaldo Hills PCP - General Family Medicine 12/07/17 [place] [facility] PCP - Primary Care Clinic Family Medicine 12/07/17
--- OUTSIDE RECORDS SUMMARY | 2024-08-04 00:18 | XMS_ITS | Clinical Summary ---
Author Organization [facility] Address [address] [place] [address] Care Team Providers Care Visual Coordinator Name Role Phone Mattie Castillo MD Primary [...] needed for Pain. 18 Tablet 11/27/202 4 05/28/20 25 Discontinu ed(Reorder (E-cancel not sent)) Active Problems Problem Noted Date Diagnosed Date LORI (generalized anxiety disorder) 12/22/2018 Morbid obesity with BMI of 40.0-44.9, adult 11/15 Hx of diverticulitis of colon 12/07/2017 Acute right-sided low back pain without sciatica 02/23/2016 Lumbar strain 02/23/2016 Chronic low back pain 01/16/2016 Acute follicular conjunctivitis 10/12/2005 Encounters Date Type Department Care Team Description 08/03/2024 7:20 AM CDT Office Visit [facility] [address] [place] [address] Jorge Almanza MD Procedure (L4-5 ILESI) 07/11/2024 Telephone [facility] [address] [place] [address] Jorge Almanza MD Refill Request (OXYCODONE ) 05/23/2024 Telephone [facility] [address] [place] [address] Jorge Almanza MD Need Meds (colchicine 0.6 [...] on file Legal Sex Male 5:46 AM ACCREDITATION COORDINATOR Gender Identity Not on file Sexual Orientation Not on file Obstetrics History Last Filed Vital Signs Vital Sign Reading Time Taken Comments Blood Pressure 120/81 01/23/2024 3:01 PM ACCREDITATION COORDINATOR Pulse 80 01/23/2024 3:01 PM ACCREDITATION COORDINATOR Temperature 36.6 C (97.9 F) 01/23/2024 3:01 PM ACCREDITATION COORDINATOR Respiratory Rate 18 11/24/2023 1:20 PM CDT Oxygen Saturation 95% 01/23/2024 3:01 PM ACCREDITATION COORDINATOR Inhaled Oxygen Concentration - - Weight 128.6 kg (283 lb 8 oz) 01/23/2024 3:01 PM ACCREDITATION COORDINATOR shoes on Height 177.8 cm (5' 10) [...] on patient's age to complete this topic Procedures Procedure Name Priority Date/Time Associated Diagnosis Comments AMB EPIDURAL STEROID INJECTION Routine 08/03/2024 7:57 AM CDT Lumbar radicular pain Lumbar disc herniation from Last 3 Months Insurance MEDICA [employer] FEDERATED Advance Directives * Full Code (Latest Code Status on File) Date Activated Date Inactivated Comments 01/16/2016 7:23 AM 01/17/2016 6:32 PM Care Teams Visual Coordinator Relationship Specialty Start Date End Date Mattie Castillo MD [address] [place] [address] PCP - General Family Practice 01/23/24
--- OUTSIDE RECORDS SUMMARY | 2024-08-04 00:18 | XMS_ITS | Clinical Summary ---
Author Organization [facility] Address [address] [place] [address] Care Team Providers Care Medical Transcriber Name Role Phone Oswaldo Hills Primary Care Provider [phone] Yoon Rush [facility] Unavailable Un available Allergies No known active [...] on file Legal Sex Male 8:44 AM PROJECT SAFETY MANAGER Gender Identity Not on file Sexual Orientation Not on file Last Filed Vital Signs Vital Sign Reading Time Taken Comments Blood Pressure 134/70 09/16/2018 9:57 AM CDT Pulse 79 09/16/2018 9:57 AM CDT Temperature 36.9 C (98.5 F) 09/16/2018 9:57 AM CDT Respiratory Rate 20 03/26/2017 9:13 AM PROJECT SAFETY MANAGER Oxygen Saturation 97% 09/16/2018 9:57 AM CDT [...] patient's age to complete this topic Insurance [employer] OPEN ACCESS/CHOICE [place] [id number] Care Teams Medical Transcriber Relationship Specialty Start Date End Date Reinier Oswaldo L PCP - [facility] Family [facility]
== END 2024-08-03 06:52 | disposition home or self-care (01) ==
PROVIDERS: Visit Provider Family Medicine
DX: M54.16 Radiculopathy, lumbar region (principal); M51.369 Other intervertebral disc degeneration, lumbar region without mention of lumbar back pain or lower extremity pain
CPT/HCPCS: 62323; J0702; Q9966